=== PATIENT | female | born 1995 | race Two or more races ===

== ENCOUNTER 2016-07-13 15:42 | Emergency (ER) | payer SELFPAY ==
[~2016-07-13] VITALS: Ht 172.7 cm; Wt 95.3 kg
[~2016-07-13 15:42] MED LIST: CEPH-264 PO; IBUP-1007 PO
[2016-07-13 16:47] VITALS: BP 144/81
[2016-07-13] MEDS ORDERED: HYDROCODONE/APAP 5/325MG TABLET. PO ONE (17:30)
[2016-07-13] MEDS ORDERED: CYCLOBENZAPRINE 10 MG TABLET. PO ONE (17:30)
[2016-07-13 17:33] LABS: BILIRUBIN,URINE NEGATIVE (NEG); GLUCOSE,URINE NEGATIVE (NEG); NITRITE,URINE NEGATIVE (NEG); PH,URINE 6.5; PROTEIN,URINE NEGATIVE (NEG-TRACE)
[2016-07-13 17:41] LABS: BACTERIA,URINE FEW /HPF (0-FEW); RBC,URINE 0 /HPF (0-2); SQUAMOUS EPITHELIAL CELL,UR MANY /LPF
[2016-07-13] MEDS ORDERED: CYCL10TA2 PO (18:07)
[2016-07-13] MEDS ORDERED: NAPR500T8 PO (18:07)
[2016-07-13] MEDS ORDERED: SULF1TAB24 PO (18:07)
--- NOTE | 2016-07-13 18:08 | PHYS DOC ---
Past Medical History Past Medical History: No Pertinent History Past Surgical History: No Surgical History Alcohol Use: None Drug Use: None Adult General Chief Complaint Chief Complaint: BACK PAIN - NO INJURY [facility] HPI Patient is a 21 year old female who presents with mild right flank pain that began yesterday. Patient states she has history of intermittent chronic back pain that usually clears up with naproxen or ibuprofen. Patient states she has taken them with no relief. Patient denies any hematuria urgency frequency or dysuria. Denies any chance she is . Patient denies any pain radiating to bilateral lower extremities. Denies any loss of bowel bladder function. Denies any numbness or tingling to bilateral lower extremities. Review of Systems Review of Systems Constitutional: Denies fever or chills [] Eyes: Denies change in visual acuity, redness, or eye pain [] HENT: Denies nasal congestion or sore throat [] Respiratory: Denies cough or shortness of breath [] Cardiovascular: No additional information not addressed in HPI [] GI: Denies abdominal pain, nausea, vomiting, bloody stools or diarrhea [] : Right flank pain Musculoskeletal: Denies back pain or joint pain [] Integument: Denies rash or skin lesions [] Neurologic: Denies headache, focal weakness or sensory changes [] Endocrine: Denies polyuria or polydipsia [] Current Medications Current Medications Current Medications Medications (Trade) Dose Ordered Sig/Roberth Start Time Stop Time Status Last Admin Dose Admin Acetaminophen/ Hydrocodone Bitart (Lortab 5/325) 1 tab 1X ONCE 07/13/16 17:30 07/13/16 17:31 DC 07/13/16 17:29 1 TAB Cyclobenzaprine HCl (Flexeril) 10 mg 1X ONCE 07/13/16 17:30 07/13/16 17:31 DC 07/13/16 17:29 10 MG Allergies Allergies Allergies Coded Allergies Type Severity Reaction Last Updated Verified No Known Drug Allergies 04/08/16 No Physical Exam Physical Exam Constitutional: Well developed, well nourished, no acute distress, non-toxic appearance. [] HENT: Normocephalic, atraumatic, bilateral external ears normal, oropharynx moist, no oral exudates, nose normal. [] Eyes: PERRLA, EOMI, conjunctiva normal, no discharge. [] Neck: Normal range of motion, no tenderness, supple, no stridor. [] Cardiovascular:Heart rate regular rhythm, no murmur [] Lungs & Thorax: Bilateral breath sounds clear to auscultation [] Abdomen: Bowel sounds normal, soft, no tenderness, no masses, no pulsatile masses. [] Skin: Warm, dry, no erythema, no rash. [] Back: No tenderness, mild right CVA tenderness. [] Extremities: No tenderness, no cyanosis, no clubbing, ROM intact, no edema. [] Neurologic: Alert and oriented X 3, normal motor function, normal sensory function, no focal deficits noted. [] Psychologic: Affect normal, judgement normal, mood normal. [] Current Patient Data Vital Signs Vital Signs Date Time Temp Pulse Resp B/P Pulse Ox O2 Delivery O2 Flow Rate FiO2 07/13/16 16:47 97.7 102 16 100 Room Air 97.7 Lab Values Laboratory Tests Test 07/13/16 17:14 07/13/16 17:17 Urine Collection Type Unknown Urine Color Yellow Urine Clarity Cloudy Urine pH 6.5 Urine Specific [place] 1.025 Urine Protein Negativemg/dL (NEG-TRACE) Urine Glucose (UA) Negativemg/dL (NEG) Urine Ketones (Stick) Negativemg/dL (NEG) Urine Blood Negative (NEG) Urine Nitrite Negative (NEG) Urine Bilirubin Negative (NEG) Urine Urobilinogen Dipstick 1.0mg/dL (0.2 mg/dL) Urine Leukocyte Esterase Moderate (NEG) Urine RBC 0/HPF (0-2) Urine WBC 1-4/HPF (0-4) Urine Squamous Epithelial Cells Many/LPF Urine Bacteria Few/HPF (0-FEW) Urine Mucus Marked/LPF POC Urine HCG, Qualitative hcg negative (Negative) EKG EKG [] Radiology/Procedures Radiology/Procedures [] Course & Med Decision Making Course & Med Decision Making Pertinent Labs and Imaging studies reviewed. (See chart for details) Patient with history of back pain presents today with right flank pain, she states this is not her typical back pain. Urine positive for UTI. Discharged with Bactrim. Discharged with naproxen and Flexeril for her back pain. Instructed to push fluids. Follow-up with her PCP in one week. Negative urine hCG. Dragon Disclaimer Dragon Disclaimer This electronic medical record was generated, in whole or in part, using a voice recognition dictation system. Departure Departure Impression: Primary Impression: Urinary tract infection Additional Impression: Flank pain Disposition: HOME, SELF-CARE Condition: STABLE Referrals: NO PCP (PCP) Follow up with your doctor in one week Patient Instructions: Urinary Tract Infection Additional Instructions: You have urinary tract infection. Ensure you complete your antibiotics. Take the prescribed pain medicines as needed. Push fluids. Scripts Naproxen 500 Mg Tablet.dr1 Tab PO BID #60 TAB Ref 2 Prov:FRANCISCA AYALA APRN 07/13/16 Cyclobenzaprine Hcl 10 Mg Tablet1 Tab PO TID #30 TAB Prov:FRANCISCA AYALA APRN 07/13/16 Sulfamethoxazole/Trimethoprim (Bactrim Ds Tablet)1 Each Tablet1 Tab PO BID #14 TAB Prov:FRANCISCA AYALA APRN 07/13/16 Problem Qualifiers Primary Impression: Urinary tract infection Urinary tract infection type: acute cystitis Hematuria presence: without hematuria Qualified Code: N30.00 - Acute cystitis without hematuria FRANCISCA AYALA APRN Jul 13, 2016 18:08
== END 2016-07-13 18:15 | disposition home or self-care (01) ==
LOC: ER 15:42
DX: N39.0 Urinary tract infection, site not specified (principal); G89.29 Other chronic pain
CPT/HCPCS: 81001; 81025; 99284